=== PATIENT | male | born 1950 | race African-American/Black ===

== ENCOUNTER 2021-04-28 14:26 | Inpatient (IN) | payer MEDICARE, MEDICAID ==
[~2021-04-28] VITALS: Ht 172.7 cm; Wt 54.9 kg
[2021-04-28 16:43] LABS: CHLORIDE 101 mEq/L (98-107)
[2021-04-28 16:44] LABS: BASOPHILS % 0.5 % (0.0-2.0); EOSINOPHILS % 0.9 % (0.0-5.0); HEMATOCRIT. 40.7 % (42.0-52.0); HEMOGLOBIN. 13.8 g/dL (14.0-18.0); LYMPHOCYTES % 17.2 % (20.0-50.0); MEAN CORPUSCULAR HEMOGLOBIN 32.8 pg (28.0-32.0); MEAN CORPUSCULAR VOLUME 96.8 fL (80.0-94.0); MEAN PLATELET VOLUME 8.5 fl (7.4-10.4); MONOCYTES % 5.5 % (2.0-8.0); NEUTROPHILS % 75.9 % (40.0-76.0); PLATELET 303 x1000/uL (130-400); RED CELL DISTRIBUTION WIDTH 13.3 % (11.6-14.6)
[2021-04-28] MEDS ORDERED: ALBUTEROL (0.083%) 2.5MG/3ML NEB HHN STA (16:47)
[2021-04-28] MEDS ORDERED: IPRATROPIUM BROMIDE (0.02%) 0.5MG/2.5ML NEB HHN STA (16:47)
[2021-04-28] MEDS ORDERED: PREDNISONE 20MG TABLET PO STA (16:47)
[2021-04-28] MEDS ORDERED: FUROSEMIDE 40MG/4ML VIAL IVP NR (17:15)
[2021-04-28] MEDS ORDERED: ALBUTEROL (0.5%) 2.5MG/0.5ML NEB HHN ONE (17:16)
[2021-04-28] MEDS ORDERED: CEFTRIAXONE 1 G PREMIX 50 ML IV ONE (18:45)
[2021-04-28] MEDS ORDERED: AZITHROMYCIN 500 MG in DEXT 5% WATER 250 ML IV SCH (18:45)
[2021-04-28 20:35] LABS: CLARITY URINE CLEAR (CLEAR); COLOR URINE YELLOW (YELLOW); KETONES URINE NEGATIVE (NEGATIVE); LEUKOCYTE ESTERASE URINE NEGATIVE (NEGATIVE); NITRITE URINE NEGATIVE (NEGATIVE); OCCULT BLOOD URINE NEGATIVE (NEGATIVE); PH URINE 6.5 (4.5-8.0); PROTEIN URINE 1+ (NEGATIVE); SPECIFIC GRAVITY URINE 1.015 (1.005-1.030); UROBILINOGEN URINE 0.2 E.U./dL (0.2-1.0)
[2021-04-29 10:15] VITALS: BP 142/82
[2021-04-29] MEDS ORDERED: GLYB2.5T4 PO (11:02)
[2021-04-29] MEDS ORDERED: METF-873 PO (11:02)
[2021-04-29 11:16] VITALS: BP 143/83
[2021-04-29 12:00] VITALS: BP 146/101
[2021-04-29 12:02] VITALS: BP 143/83
[2021-04-29] MEDS ORDERED: CLONIDINE 0.1MG TABLET PO PRN (12:45)
[2021-04-29] MEDS ORDERED: MAGNESIUM/ALUMINUM HYDROXIDE/SIMETHICONE 30ML UDC PO PRN (12:45)
[2021-04-29] MEDS ORDERED: HYDROCODONE/ACETAMINOPHEN 5/325MG TABLET PO PRN (12:45)
[2021-04-29] MEDS ORDERED: DOCUSATE SODIUM 100MG CAPSULE PO PRN (12:45)
[2021-04-29] MEDS ORDERED: ACETAMINOPHEN 325MG TABLET PO PRN (12:45)
[2021-04-29] MEDS ORDERED: ONDANSETRON HCL 4MG/2ML INJ IV PRN (12:45)
[2021-04-29] MEDS ORDERED: DEXTROSE 50% WATER 50ML SYRINGE IV PRN ×2 (12:45)
[2021-04-29] MEDS ORDERED: IPRATROPIUM/ALBUTEROL 0.5-3(2.5)MG/3ML NEB HHN PRN (12:45)
[2021-04-29] MEDS: FUROSEMIDE 40MG/4ML VIAL IVP SCH ×2 (14:32→18:40)
[2021-04-29] MEDS: LOSARTAN POTASSIUM 25 MG TABLET PO SCH (14:32)
[2021-04-29] MEDS: ENOXAPARIN 40MG/0.4ML SYR SUBCUT SCH (14:33)
[2021-04-29] MEDS: INSULIN LISPRO 100 UNITS/ML SUBCUT SCH ×3 (14:35→21:00)
[2021-04-29] MEDS ORDERED: INSULIN LISPRO 100 UNITS/ML SUBCUT NR (14:45)
[2021-04-29 16:00] VITALS: BP 141/86
[2021-04-29] MEDS ORDERED: GLYBURIDE 2.5MG TABLET PO SCH (17:00)
[2021-04-29 17:10] LABS: HEPATITIS B SURFACE ANTIGEN NEGATIVE
[2021-04-29 17:54] LABS: CLARITY URINE CLEAR (CLEAR); COLOR URINE YELLOW (YELLOW); KETONES URINE NEGATIVE (NEGATIVE); LEUKOCYTE ESTERASE URINE NEGATIVE (NEGATIVE); NITRITE URINE NEGATIVE (NEGATIVE); OCCULT BLOOD URINE NEGATIVE (NEGATIVE); PH URINE 6.5 (4.5-8.0); PROTEIN URINE NEGATIVE (NEGATIVE); SPECIFIC GRAVITY URINE 1.021 (1.005-1.030); UROBILINOGEN URINE 0.2 E.U./dL (0.2-1.0)
[2021-04-29] MEDS ORDERED: NALOXONE HCL 0.4MG/ML VIAL IV PRN (18:00)
[2021-04-29] MEDS: BLOOD SUGAR DIAGNOSTIC STRIP TEST SCH ×2 (18:09→21:45)
[2021-04-29 18:31] LABS: *AMPHETAMINES SCREEN URINE NEGATIVE (NEGATIVE); *BARBITURATES SCREEN URINE NEGATIVE (NEGATIVE); *BENZODIAZEPINES SCREEN URINE NEGATIVE (NEGATIVE); *COCAINE SCREEN URINE NEGATIVE (NEGATIVE); METHADONE URINE SCREEN NEGATIVE (NEGATIVE); OPIATES URINE SCREEN NEGATIVE (NEGATIVE)
[2021-04-29 18:32] LABS: CANNABINOID URINE SCREEN NEGATIVE (NEGATIVE); PHENCYCLIDINE URINE SCREEN NEGATIVE (NEGATIVE)
[2021-04-29] MEDS: METFORMIN HCL 500MG TABLET PO SCH (18:40)
[2021-04-29] MEDS: GLIPIZIDE 5MG TABLET PO SCH (18:40)
[2021-04-29 20:00] VITALS: BP 129/93
[2021-04-29] MEDS: CARVEDILOL 3.125 MG TABLET PO SCH (21:45)
[2021-04-29] MEDS ORDERED: ZOLPIDEM TARTRATE 5MG TABLET PO PRN (22:45)
[2021-04-29] MEDS: ZOLPIDEM TARTRATE 5MG TABLET PO PRN (23:55)
[2021-04-30] VITALS (7 sets, daily range): BP systolic 127–148; BP diastolic 73–93
[2021-04-30] MEDS: FUROSEMIDE 40MG/4ML VIAL IVP SCH ×2 (06:34→18:51)
[2021-04-30 06:42] LABS: CHLORIDE 101 mEq/L (98-107)
[2021-04-30] MEDS: BLOOD SUGAR DIAGNOSTIC STRIP TEST SCH ×4 (06:42→21:08)
[2021-04-30 06:55] LABS: LDL CHOLESTEROL 114 mg/dL (5-100)
[2021-04-30 06:56] LABS: BASOPHILS % 0.7 % (0.0-2.0); EOSINOPHILS % 2.7 % (0.0-5.0); HDL CHOLESTEROL 61 mg/dL (40-59); HEMATOCRIT. 40.8 % (42.0-52.0); HEMOGLOBIN. 13.6 g/dL (14.0-18.0); LYMPHOCYTES % 21.4 % (20.0-50.0); MEAN CORPUSCULAR HEMOGLOBIN 32.3 pg (28.0-32.0); MEAN PLATELET VOLUME 8.5 fl (7.4-10.4); MONOCYTES % 6.9 % (2.0-8.0); NEUTROPHILS % 68.3 % (40.0-76.0); PLATELET 295 x1000/uL (130-400); RED BLOOD CELL COUNT 4.21 mill/uL (4.7-6.1); RED CELL DISTRIBUTION WIDTH 13.2 % (11.6-14.6)
[2021-04-30] MEDS: LOSARTAN POTASSIUM 25 MG TABLET PO SCH (09:52)
[2021-04-30] MEDS: GLIPIZIDE 5MG TABLET PO SCH ×2 (09:52→18:51)
[2021-04-30] MEDS: CARVEDILOL 3.125 MG TABLET PO SCH (09:53)
[2021-04-30] MEDS: METFORMIN HCL 500MG TABLET PO SCH ×2 (09:53→18:51)
[2021-04-30] MEDS: INSULIN LISPRO 100 UNITS/ML SUBCUT SCH ×4 (09:57→21:45)
[2021-04-30] MEDS: ENOXAPARIN 40MG/0.4ML SYR SUBCUT SCH (16:00)
[2021-04-30] MEDS: CARVEDILOL 12.5MG TABLET PO SCH (21:44)
[2021-05-01] VITALS: BP 125/77
[2021-05-01] MEDS ORDERED: MAGNESIUM 1 G PREMIX 100 ML IV NR
[2021-05-01 04:00] VITALS: BP 139/87
[2021-05-01] MEDS: FUROSEMIDE 40MG/4ML VIAL IVP SCH ×2 (06:18→16:19)
[2021-05-01] MEDS: BLOOD SUGAR DIAGNOSTIC STRIP TEST SCH ×4 (06:45→21:19)
[2021-05-01] MEDS: INSULIN LISPRO 100 UNITS/ML SUBCUT SCH ×4 (07:50→21:22)
[2021-05-01 08:10] VITALS: BP 128/68
[2021-05-01] MEDS: CARVEDILOL 12.5MG TABLET PO SCH ×2 (09:25→21:21)
[2021-05-01] MEDS: LOSARTAN POTASSIUM 25 MG TABLET PO SCH (09:25)
[2021-05-01] MEDS: GLIPIZIDE 5MG TABLET PO SCH ×2 (09:26→16:19)
[2021-05-01] MEDS: METFORMIN HCL 500MG TABLET PO SCH ×2 (09:26→17:10)
[2021-05-01 12:00] VITALS: BP 132/82
[2021-05-01] MEDS: SPIRONOLACTONE 25MG TABLET PO SCH (12:19)
[2021-05-01 13:03] LABS: BASOPHILS % 1.1 % (0.0-2.0); EOSINOPHILS % 2.7 % (0.0-5.0); HEMATOCRIT. 39.3 % (42.0-52.0); HEMOGLOBIN. 13.2 g/dL (14.0-18.0); LYMPHOCYTES % 26.6 % (20.0-50.0); MEAN CORPUSCULAR HEMOGLOBIN 32.5 pg (28.0-32.0); MEAN CORPUSCULAR VOLUME 96.7 fL (80.0-94.0); MEAN PLATELET VOLUME 8.2 fl (7.4-10.4); MONOCYTES % 7.9 % (2.0-8.0); NEUTROPHILS % 61.7 % (40.0-76.0); PLATELET 315 x1000/uL (130-400); RED BLOOD CELL COUNT 4.06 mill/uL (4.7-6.1); RED CELL DISTRIBUTION WIDTH 13.2 % (11.6-14.6)
[2021-05-01 13:37] LABS: CHLORIDE 99 mEq/L (98-107)
[2021-05-01 16:00] VITALS: BP 145/90
[2021-05-01] MEDS: ENOXAPARIN 40MG/0.4ML SYR SUBCUT SCH (16:19)
[2021-05-01 20:00] VITALS: BP 137/75
[2021-05-01] MEDS: ATORVASTATIN CALCIUM 20MG TABLET PO SCH (21:21)
[2021-05-02] VITALS: BP 138/78
[2021-05-02 04:00] VITALS: BP 124/73
[2021-05-02] MEDS: FUROSEMIDE 40MG/4ML VIAL IVP SCH ×2 (06:42→16:59)
[2021-05-02] MEDS: BLOOD SUGAR DIAGNOSTIC STRIP TEST SCH ×4 (06:47→21:46)
[2021-05-02 08:00] VITALS: BP 129/75
[2021-05-02] MEDS: METFORMIN HCL 500MG TABLET PO SCH ×2 (08:37→17:29)
[2021-05-02] MEDS: GLIPIZIDE 5MG TABLET PO SCH ×2 (08:37→17:29)
[2021-05-02] MEDS: LOSARTAN POTASSIUM 25 MG TABLET PO SCH (08:37)
[2021-05-02] MEDS: CARVEDILOL 12.5MG TABLET PO SCH ×2 (08:38→21:00)
[2021-05-02] MEDS: SPIRONOLACTONE 25MG TABLET PO SCH (08:38)
[2021-05-02] MEDS: INSULIN LISPRO 100 UNITS/ML SUBCUT SCH ×4 (08:42→21:00)
[2021-05-02 12:00] VITALS: BP 125/81
[2021-05-02 16:00] VITALS: BP 119/79
[2021-05-02 20:00] VITALS: BP 131/63
[2021-05-02] MEDS: ATORVASTATIN CALCIUM 20MG TABLET PO SCH (21:00)
[2021-05-03] VITALS: BP 150/82
[2021-05-03 04:00] VITALS: BP 128/75
[2021-05-03] MEDS: FUROSEMIDE 40MG/4ML VIAL IVP SCH ×2 (06:27→19:06)
[2021-05-03] MEDS: BLOOD SUGAR DIAGNOSTIC STRIP TEST SCH ×4 (06:27→21:47)
[2021-05-03] MEDS: INSULIN LISPRO 100 UNITS/ML SUBCUT SCH ×4 (06:39→21:45)
[2021-05-03 09:00] VITALS: BP 102/63
[2021-05-03] MEDS: CARVEDILOL 12.5MG TABLET PO SCH ×3 (09:00→21:36)
[2021-05-03] MEDS: LOSARTAN POTASSIUM 25 MG TABLET PO SCH ×2 (09:00→09:05)
[2021-05-03] MEDS: METFORMIN HCL 500MG TABLET PO SCH ×2 (09:04→18:29)
[2021-05-03] MEDS: GLIPIZIDE 5MG TABLET PO SCH ×2 (09:04→18:28)
[2021-05-03] MEDS: SPIRONOLACTONE 25MG TABLET PO SCH (09:04)
[2021-05-03 12:00] VITALS: BP 154/85
[2021-05-03 12:30] LABS: PROTHROMBIN TIME 11.2 sec (9.6-11.0)
[2021-05-03 16:00] VITALS: BP 120/69
[2021-05-03 20:00] VITALS: BP 128/79
[2021-05-03] MEDS: ZOLPIDEM TARTRATE 5MG TABLET PO PRN (21:34)
[2021-05-03] MEDS: ATORVASTATIN CALCIUM 20MG TABLET PO SCH (21:36)
[2021-05-04] VITALS: BP 120/71
[2021-05-04 04:00] VITALS: BP 140/75
[2021-05-04] MEDS: FUROSEMIDE 40MG/4ML VIAL IVP SCH ×2 (07:05→17:39)
[2021-05-04] MEDS: INSULIN LISPRO 100 UNITS/ML SUBCUT SCH ×4 (07:07→20:36)
[2021-05-04] MEDS: BLOOD SUGAR DIAGNOSTIC STRIP TEST SCH ×4 (07:10→20:36)
[2021-05-04 08:00] VITALS: BP 127/95
[2021-05-04] MEDS: METFORMIN HCL 500MG TABLET PO SCH ×2 (08:40→17:47)
[2021-05-04] MEDS: LOSARTAN POTASSIUM 25 MG TABLET PO SCH (08:40)
[2021-05-04] MEDS: CARVEDILOL 12.5MG TABLET PO SCH ×2 (08:40→20:37)
[2021-05-04] MEDS: SPIRONOLACTONE 25MG TABLET PO SCH (08:40)
[2021-05-04] MEDS: GLIPIZIDE 5MG TABLET PO SCH ×2 (08:40→17:47)
[2021-05-04] MEDS ORDERED: SODIUM BICARBONATE 4% (2.4MEQ) 5ML VIAL IV ONE (09:35)
[2021-05-04] MEDS ORDERED: COR12 PO (12:30)
[2021-05-04] MEDS ORDERED: SPIR25TA PO (12:30)
[2021-05-04] MEDS ORDERED: FURO40TA5 MT (12:30)
[2021-05-04] MEDS ORDERED: LOSA25TA3 PO (12:30)
[2021-05-04] MEDS ORDERED: GLIP5TAB12 PO (12:30)
[2021-05-04] MEDS ORDERED: ATOR20TA PO (12:30)
[2021-05-04 16:00] VITALS: BP 141/84
[2021-05-04 20:00] VITALS: BP 114/63
[2021-05-04] MEDS: ATORVASTATIN CALCIUM 20MG TABLET PO SCH (20:37)
[2021-05-05] VITALS: BP 127/68
[2021-05-05 04:00] VITALS: BP 135/83
[2021-05-05] MEDS: FUROSEMIDE 40MG/4ML VIAL IVP SCH (06:42)
[2021-05-05] MEDS: BLOOD SUGAR DIAGNOSTIC STRIP TEST SCH ×2 (06:42→12:20)
[2021-05-05 07:40] VITALS: BP 109/73
[2021-05-05] MEDS: CARVEDILOL 12.5MG TABLET PO SCH (08:33)
[2021-05-05] MEDS: LOSARTAN POTASSIUM 25 MG TABLET PO SCH (08:33)
[2021-05-05] MEDS: SPIRONOLACTONE 25MG TABLET PO SCH (08:40)
[2021-05-05] MEDS: GLIPIZIDE 5MG TABLET PO SCH (08:40)
[2021-05-05] MEDS: METFORMIN HCL 500MG TABLET PO SCH (08:40)
[2021-05-05] MEDS: INSULIN LISPRO 100 UNITS/ML SUBCUT SCH (08:42)
[2021-05-05 10:47] LABS: BG BASE EXCESS 6.3 mmol/L (-2.0-2.0); BG CARBOXYHEMOGLOBIN 0.2 % (0.5-1.5); BG DEOXYHEMOGLOBIN 3.8 % (0.0-5.0); BG FRACTION INSPIRED OXYGEN 21; BG HCO3 ACT 30.9 mmol/L (22.0-26.0); BG METHEMOGLOBIN 0.2 % (0.0-1.5); BG OXYGEN SATURATION 96.2 % (92.0-98.5); BG OXYHEMOGLOBIN 95.8 % (94.0-97.0); BG PCO2 44.2 mmHg (35.0-45.0); BG PH 7.462 (7.350-7.450); BG PO2 84.3 mmHg (75.0-100.0); BG SAMPLE SITE LEFT RADIAL; BG TOTAL HEMOGLOBIN 13.8 g/dL (12.0-18.0); BG VENT MODE ROOM AIR
[2021-05-05 12:40] VITALS: BP 109/73
== END 2021-05-05 13:50 | disposition home health service (06) | DRG 133 ==
LOC: ER 14:39 → MICUSO 18:34 → 6WST 04-29 08:54
PROVIDERS: ADMIT Internal Medicine; ATTEND Internal Medicine
PROC: 0W993ZZ Drainage of Right Pleural Cavity, Percutaneous Approach (ICD-10-PCS; principal; 2021-05-04)
DX: J96.00 Acute respiratory failure, unspecified whether with hypoxia or hypercapnia (principal); I50.23 Acute on chronic systolic (congestive) heart failure; E11.649 Type 2 diabetes mellitus with hypoglycemia without coma; I27.29 Other secondary pulmonary hypertension; J91.8 Pleural effusion in other conditions classified elsewhere; I11.0 Hypertensive heart disease with heart failure; I42.9 Cardiomyopathy, unspecified; I25.10 Atherosclerotic heart disease of native coronary artery without angina pectoris; J44.9 Chronic obstructive pulmonary disease, unspecified; Z20.822 Contact with and (suspected) exposure to COVID-19; Z60.2 Problems related to living alone; I08.1 Rheumatic disorders of both mitral and tricuspid valves; Z87.891 Personal history of nicotine dependence; I25.2 Old myocardial infarction; Z87.01 Personal history of pneumonia (recurrent); Z91.19 Patient's noncompliance with other medical treatment and regimen; Z83.3 Family history of diabetes mellitus; Z95.5 Presence of coronary angioplasty implant and graft; Z79.84 Long term (current) use of oral hypoglycemic drugs; Z79.899 Other long term (current) drug therapy
CPT/HCPCS: 32555; 36415; 36600; 71045; 76604; 76700; 80048; 80053; 80061; 80076; 80305; 81003; 82375; 82805; 82962; 83036; 83615; 83735; 83880; 84100; 84439; 84443; 84484; 85025; 86705; 86709; 86803; 87340; 87426; 88108; 88312; 93005; 93306; 93970; 94640; 97162; 97166; 99285; C1893; J0456; J0696; J1650; J1815; J1940; J3475; J3490; J7060; J7512

== ENCOUNTER 2021-07-22 07:40 | Emergency (ER) | payer MEDICARE, MEDICAID ==
[~2021-07-22] VITALS: Ht 172.7 cm; Wt 66.0 kg
[~2021-07-22 07:40] MED LIST: ATOR20TA PO; COR12 PO; FURO40TA5 MT; GLIP5TAB12 PO; LOSA25TA3 PO; METF-873 PO; SPIR25TA PO
[2021-07-22] MEDS ORDERED: IPRATROPIUM BROMIDE (0.02%) 0.5MG/2.5ML NEB HHN STA (08:59)
[2021-07-22] MEDS ORDERED: ALBUTEROL (0.083%) 2.5MG/3ML NEB HHN STA (08:59)
[2021-07-22] MEDS ORDERED: PREDNISONE 20MG TABLET PO ONE (09:00)
[2021-07-22 09:26] LABS: EOSINOPHILS % 1.4 % (0.0-5.0); HEMOGLOBIN. 13.7 g/dL (14.0-18.0); LYMPHOCYTES % 25.7 % (20.0-50.0); MEAN CORPUSCULAR HEMOGLOBIN 31.8 pg (28.0-32.0); MEAN CORPUSCULAR VOLUME 97.3 fL (80.0-94.0); MEAN PLATELET VOLUME 8.1 fl (7.4-10.4); MONOCYTES % 7.6 % (2.0-8.0); NEUTROPHILS % 64.3 % (40.0-76.0); PLATELET 260 x1000/uL (130-400); RED BLOOD CELL COUNT 4.32 mill/uL (4.7-6.1); RED CELL DISTRIBUTION WIDTH 15.4 % (11.6-14.6)
[2021-07-22 09:33] LABS: CHLORIDE 109 mEq/L (98-107)
[2021-07-22] MEDS ORDERED: CLONIDINE 0.1MG TABLET PO PRN (10:15)
[2021-07-22] MEDS ORDERED: NA PHOS,M-B/NA PHOS,DI-BA ENEMA 118ML PR PRN (10:15)
[2021-07-22] MEDS ORDERED: LORAZEPAM 2MG/ML CPJ IV PRN (10:15)
[2021-07-22] MEDS ORDERED: ONDANSETRON HCL 4MG/2ML INJ IV PRN (10:15)
[2021-07-22] MEDS ORDERED: MAGNESIUM/ALUMINUM HYDROXIDE/SIMETHICONE 30ML UDC PO PRN (10:15)
[2021-07-22] MEDS ORDERED: GUAIFENESIN 200MG/10ML SUGAR FREE UDC PO PRN (10:15)
[2021-07-22] MEDS ORDERED: DIPHENHYDRAMINE 50MG/ML VIAL IV PRN (10:15)
[2021-07-22] MEDS ORDERED: ENALAPRIL 2.5MG/2ML VIAL 2ML IV ONE (10:15)
[2021-07-22] MEDS ORDERED: ACETAMINOPHEN 325MG TABLET PO PRN (10:15)
[2021-07-22] MEDS ORDERED: DOCUSATE SODIUM 100MG CAPSULE PO PRN (10:15)
[2021-07-22] MEDS ORDERED: MORPHINE SULFATE 2 MG/ML CPJ (NOT FOR IM USE) IV PRN (10:15)
[2021-07-22] MEDS ORDERED: IPRATROPIUM/ALBUTEROL 0.5-3(2.5)MG/3ML NEB NEB PRN (10:15)
[2021-07-22] MEDS ORDERED: FUROSEMIDE 40MG/4ML VIAL IVP ONE (10:15)
[2021-07-22] MEDS ORDERED: HYDROCODONE/ACETAMINOPHEN 5/325MG TABLET PO PRN (10:15)
[2021-07-22] MEDS ORDERED: ENALAPRIL 1.25MG/ML VIAL 1ML IV NR (10:30)
[2021-07-22] MEDS ORDERED: METHYLPREDNISOLONE SOD SUCC 125 MG/2 ML VIAL IV SCH (11:00)
[2021-07-22] MEDS ORDERED: ASPIRIN 81MG EC TABLET PO SCH (11:00)
[2021-07-22] MEDS ORDERED: ENOXAPARIN 40MG/0.4ML SYR SUBCUT SCH (12:00)
[2021-07-22] MEDS ORDERED: AZITHROMYCIN 500 MG in DEXT 5% WATER 250 ML IV SCH (12:00)
[2021-07-22 13:18] VITALS: BP 131/81
== END 2021-07-22 13:00 | disposition left against medical advice (07) ==
LOC: ER 07:44 → EDBEDREQTM 10:11 → EDBEDREQ 10:11 → ER 13:00 → CANBEDREQ 16:10
DX: J96.00 Acute respiratory failure, unspecified whether with hypoxia or hypercapnia (principal); I11.0 Hypertensive heart disease with heart failure; I50.9 Heart failure, unspecified; J44.9 Chronic obstructive pulmonary disease, unspecified; J45.909 Unspecified asthma, uncomplicated; E11.65 Type 2 diabetes mellitus with hyperglycemia; I25.10 Atherosclerotic heart disease of native coronary artery without angina pectoris; R00.0 Tachycardia, unspecified; I25.2 Old myocardial infarction; E46 Unspecified protein-calorie malnutrition; Z68.22 Body mass index [BMI] 22.0-22.9, adult; Z79.899 Other long term (current) drug therapy; Z79.84 Long term (current) use of oral hypoglycemic drugs
CPT/HCPCS: 36415; 71045; 80053; 83880; 84484; 85025; 93005; 94644; 99285; J7512; Z7610; J0456; J3490; J7060

== ENCOUNTER 2021-08-24 22:19 | Inpatient (IN) | payer MEDICARE, MEDICAID ==
[~2021-08-24] VITALS: Ht 170.2 cm; Wt 72.6 kg
[2021-08-24] MEDS ORDERED: IPRATROPIUM BROMIDE (0.02%) 0.5MG/2.5ML NEB HHN STA (22:47)
[2021-08-24] MEDS ORDERED: METHYLPREDNISOLONE SOD SUCC 125 MG/2 ML VIAL IV STA (22:47)
[2021-08-24] MEDS ORDERED: ALBUTEROL (0.083%) 2.5MG/3ML NEB HHN STA (22:47)
[2021-08-24] MEDS ORDERED: MAGNESIUM 2 G PREMIX 50 ML IV STA (22:47)
[2021-08-25] MEDS ORDERED: ACETAMINOPHEN 325MG TABLET PO PRN (01:15)
[2021-08-25] MEDS: METHYLPREDNISOLONE SOD SUCC 125 MG/2 ML VIAL IV SCH ×3 (01:15→12:48)
[2021-08-25] MEDS ORDERED: ONDANSETRON HCL 4MG/2ML INJ IV PRN (01:15)
[2021-08-25 01:44] LABS: HEMATOCRIT 39.9 % (42.0-52.0); HEMOGLOBIN 13.7 g/dL (14.0-18.0); MEAN CORPUSCULAR HEMOGLOBIN 33.3 pg (28.0-32.0); PLATELET 260 x1000/uL (130-400); RED BLOOD CELL COUNT 4.11 mill/uL (4.7-6.1)
[2021-08-25 01:52] LABS: CHLORIDE 107 mEq/L (98-107)
[2021-08-25 06:29] LABS: CLARITY URINE CLEAR (CLEAR); COLOR URINE YELLOW (YELLOW); KETONES URINE TRACE (NEGATIVE); LEUKOCYTE ESTERASE URINE NEGATIVE (NEGATIVE); NITRITE URINE NEGATIVE (NEGATIVE); OCCULT BLOOD URINE NEGATIVE (NEGATIVE); PH URINE 5.5 (4.5-8.0); PROTEIN URINE 2+ (NEGATIVE); SPECIFIC GRAVITY URINE 1.035 (1.005-1.030)
[2021-08-25 07:50] LABS: *AMPHETAMINES SCREEN URINE NEGATIVE (NEGATIVE); *BARBITURATES SCREEN URINE NEGATIVE (NEGATIVE); *BENZODIAZEPINES SCREEN URINE NEGATIVE (NEGATIVE); *COCAINE SCREEN URINE NEGATIVE (NEGATIVE); METHADONE URINE SCREEN NEGATIVE (NEGATIVE); OPIATES URINE SCREEN PRESUMTIVE POSITIVE (NEGATIVE)
[2021-08-25 07:51] LABS: CANNABINOID URINE SCREEN NEGATIVE (NEGATIVE); PHENCYCLIDINE URINE SCREEN NEGATIVE (NEGATIVE)
[2021-08-25 08:45] LABS: CREATINE KINASE 145 IU/L (39-308)
[2021-08-25 08:46] LABS: CREATINE KINASE MB FRACTION 3.9 ng/mL (0.5-3.6)
[2021-08-25] MEDS: ENOXAPARIN 40MG/0.4ML SYR SUBCUT SCH (09:00)
[2021-08-25] MEDS: AMLODIPINE 10MG TABLET PO SCH (09:21)
[2021-08-25 10:00] VITALS: BP 178/109
[2021-08-25] MEDS ORDERED: CLONIDINE 0.1MG TABLET PO PRN (10:30)
[2021-08-25 11:00] VITALS: BP 178/109
[2021-08-25 12:00] VITALS: BP 131/71
[2021-08-25] MEDS: IPRATROPIUM/ALBUTEROL 0.5-3(2.5)MG/3ML NEB HHN SCH ×2 (14:00→20:52)
[2021-08-25] MEDS ORDERED: DEXTROSE 50% WATER 50ML SYRINGE IV PRN (14:45)
[2021-08-25] MEDS: BENAZEPRIL 5MG TABLET PO SCH (15:05)
[2021-08-25] MEDS: CARVEDILOL 6.25 MG TABLET PO SCH ×2 (15:05→20:30)
[2021-08-25 16:00] VITALS: BP 130/80
[2021-08-25] MEDS ORDERED: INSULIN GLARGINE UD 100 UNITS/ML SYR SUBCUT NR (17:00)
[2021-08-25] MEDS: BLOOD SUGAR DIAGNOSTIC STRIP TEST SCH ×2 (17:04→20:12)
[2021-08-25] MEDS ORDERED: INSULIN LISPRO 100 UNITS/ML SUBCUT SCH (17:40)
[2021-08-25] MEDS: METHYLPREDNISOLONE SOD SUCC 40 MG/ML VIAL IV SCH (17:47)
[2021-08-25] MEDS: INSULIN LISPRO 100 UNITS/ML SUBCUT SCH ×2 (17:51→20:31)
[2021-08-25 20:00] VITALS: BP_SYST 129; BP_SYST 133; BP_DIAS 68; BP_DIAS 84
[2021-08-26] MEDS: IPRATROPIUM/ALBUTEROL 0.5-3(2.5)MG/3ML NEB HHN SCH ×4 (02:23→20:26)
[2021-08-26 04:00] VITALS: BP 115/77
[2021-08-26] MEDS: BLOOD SUGAR DIAGNOSTIC STRIP TEST SCH ×4 (05:29→20:18)
[2021-08-26] MEDS: INSULIN LISPRO 100 UNITS/ML SUBCUT SCH ×4 (05:31→20:24)
[2021-08-26 07:26] LABS: BASOPHILS % 0.2 % (0.0-2.0); EOSINOPHILS % 0.1 % (0.0-5.0); HEMATOCRIT. 41.5 % (42.0-52.0); HEMOGLOBIN. 13.7 g/dL (14.0-18.0); MEAN CORPUSCULAR HEMOGLOBIN 32.2 pg (28.0-32.0); MEAN CORPUSCULAR VOLUME 97.4 fL (80.0-94.0); MEAN PLATELET VOLUME 8.4 fl (7.4-10.4); MONOCYTES % 4.8 % (2.0-8.0); NEUTROPHILS % 83.9 % (40.0-76.0); PLATELET 254 x1000/uL (130-400); RED BLOOD CELL COUNT 4.26 mill/uL (4.7-6.1); RED CELL DISTRIBUTION WIDTH 13.6 % (11.6-14.6)
[2021-08-26 07:41] LABS: CHLORIDE 102 mEq/L (98-107)
[2021-08-26 07:52] LABS: LDL CHOLESTEROL 112 mg/dL (5-100)
[2021-08-26 07:53] LABS: CREATINE KINASE 152 IU/L (39-308); HDL CHOLESTEROL 73 mg/dL (40-59)
[2021-08-26 07:56] LABS: CREATINE KINASE MB FRACTION 5.1 ng/mL (0.5-3.6)
[2021-08-26] MEDS: CARVEDILOL 6.25 MG TABLET PO SCH ×2 (08:59→20:18)
[2021-08-26] MEDS: BENAZEPRIL 5MG TABLET PO SCH (08:59)
[2021-08-26] MEDS: METHYLPREDNISOLONE SOD SUCC 40 MG/ML VIAL IV SCH ×2 (08:59→17:00)
[2021-08-26] MEDS: AMLODIPINE 10MG TABLET PO SCH (09:00)
[2021-08-26] MEDS: ENOXAPARIN 40MG/0.4ML SYR SUBCUT SCH (09:00)
[2021-08-26] MEDS ORDERED: INSULIN GLARGINE UD 100 UNITS/ML SYR SUBCUT SCH (10:00)
[2021-08-26 11:58] LABS: INR 1.1; PROTHROMBIN TIME 11.4 sec (9.6-11.0)
[2021-08-26 12:00] VITALS: BP 128/86
[2021-08-26] MEDS ORDERED: P50 MT (16:12)
[2021-08-26] MEDS ORDERED: ALBU6.7H9 INH (16:12)
[2021-08-26 20:00] VITALS: BP 119/84
[2021-08-27] MEDS: IPRATROPIUM/ALBUTEROL 0.5-3(2.5)MG/3ML NEB HHN SCH ×3 (01:56→14:00)
[2021-08-27 04:00] VITALS: BP 137/98
[2021-08-27] MEDS: BLOOD SUGAR DIAGNOSTIC STRIP TEST SCH (06:49)
[2021-08-27] MEDS: INSULIN LISPRO 100 UNITS/ML SUBCUT SCH (06:49)
[2021-08-27] MEDS: ENOXAPARIN 40MG/0.4ML SYR SUBCUT SCH (09:00)
[2021-08-27] MEDS: METHYLPREDNISOLONE SOD SUCC 40 MG/ML VIAL IV SCH (09:00)
[2021-08-27] MEDS: CARVEDILOL 6.25 MG TABLET PO SCH (09:00)
[2021-08-27] MEDS: AMLODIPINE 10MG TABLET PO SCH (09:00)
[2021-08-27] MEDS: BENAZEPRIL 5MG TABLET PO SCH (09:00)
[2021-08-27 14:19] LABS: BASOPHILS % 0.7 % (0.0-2.0); HEMOGLOBIN. 13.7 g/dL (14.0-18.0); LYMPHOCYTES % 18.1 % (20.0-50.0); MEAN CORPUSCULAR HEMOGLOBIN 33.7 pg (28.0-32.0); MEAN CORPUSCULAR VOLUME 96.2 fL (80.0-94.0); MEAN PLATELET VOLUME 8.5 fl (7.4-10.4); MONOCYTES % 5.9 % (2.0-8.0); NEUTROPHILS % 74.3 % (40.0-76.0); PLATELET 251 x1000/uL (130-400); RED BLOOD CELL COUNT 4.06 mill/uL (4.7-6.1); RED CELL DISTRIBUTION WIDTH 13.6 % (11.6-14.6)
[2021-08-27 14:38] LABS: CHLORIDE 102 mEq/L (98-107)
[2021-08-27] MEDS ORDERED: METFORMIN HCL 500 MG PO SCH (15:15)
[2021-08-27] MEDS ORDERED: METFORMIN HCL 500MG TABLET PO SCH (17:40)
[2021-08-29 21:30] LABS: HEPATITIS B SURFACE ANTIGEN NEGATIVE
== END 2021-08-27 18:15 | disposition home or self-care (01) | DRG 142 ==
LOC: ER 22:19 → MICUSO 08-25 01:06 → 8WST 08-25 09:38
PROVIDERS: ADMIT Family Medicine; ATTEND Family Medicine
DX: J84.9 Interstitial pulmonary disease, unspecified (principal); J96.00 Acute respiratory failure, unspecified whether with hypoxia or hypercapnia; I50.23 Acute on chronic systolic (congestive) heart failure; J44.1 Chronic obstructive pulmonary disease with (acute) exacerbation; I27.29 Other secondary pulmonary hypertension; I42.9 Cardiomyopathy, unspecified; E11.9 Type 2 diabetes mellitus without complications; E78.5 Hyperlipidemia, unspecified; F17.210 Nicotine dependence, cigarettes, uncomplicated; I08.1 Rheumatic disorders of both mitral and tricuspid valves; I11.0 Hypertensive heart disease with heart failure; Z20.822 Contact with and (suspected) exposure to COVID-19; I70.0 Atherosclerosis of aorta; I25.2 Old myocardial infarction
CPT/HCPCS: 36415; 71045; 76700; 80053; 80061; 80076; 80305; 81003; 82140; 82550; 82553; 82962; 83036; 83880; 84443; 84484; 85025; 85027; 86705; 86709; 86803; 87340; 87426; 93005; 93306; 94640; 99291; C1893; J1650; J1815; J2920; J2930; J3475

== ENCOUNTER 2021-09-19 01:30 | Emergency (ER) | payer MEDICARE, MEDICAID ==
[~2021-09-19] VITALS: Ht 177.8 cm; Wt 59.0 kg
[~2021-09-19 01:30] MED LIST changes: +ALBU6.7H9 INH; -ATOR20TA PO; -FURO40TA5 MT; +FURO40TA5 PO; -GLIP5TAB12 PO; +INSU100I28 SQ; +POTA-9 MT; -SPIR25TA PO
[2021-09-19 09:40] VITALS: BP 139/75
== END 2021-09-19 09:41 | disposition home or self-care (01) ==
LOC: ER 01:45
DX: Z48.00 Encounter for change or removal of nonsurgical wound dressing (principal)
CPT/HCPCS: 99283

== ENCOUNTER 2022-02-06 21:17 | Inpatient (IN) | payer MEDICARE, MEDICAID ==
[~2022-02-06] VITALS: Ht 170.2 cm; Wt 56.0 kg
[~2022-02-06 21:17] MED LIST changes: +POTA-202 MT; -POTA-9 MT
[2022-02-06 23:42] LABS: HEMATOCRIT. 29.6 % (42.0-52.0); HEMOGLOBIN. 9.6 g/dL (14.0-18.0); MEAN CORPUSCULAR HEMOGLOBIN 29.3 pg (28.0-32.0); MEAN CORPUSCULAR VOLUME 90.8 fL (80.0-94.0); MEAN PLATELET VOLUME 7.6 fl (7.4-10.4); PLATELET 541 x1000/uL (130-400); RED BLOOD CELL COUNT 3.26 mill/uL (4.7-6.1); RED CELL DISTRIBUTION WIDTH 16.5 % (11.6-14.6)
[2022-02-06 23:50] LABS: CHLORIDE 90 mEq/L (98-107)
[2022-02-07 00:11] LABS: BETA HYDROXYBUTYRATE 2.7 mMol/L (0.0-0.3); ETHANOL BLOOD < 10 mg/dL
[2022-02-07] MEDS ORDERED: SODIUM CHLORIDE 0.9% 1000ML BAG (SEPSIS BOLUS) IV NR (00:45)
[2022-02-07] MEDS ORDERED: PIPERACILLIN/TAZOBACTAM 3.375GM/50ML PREMIX IV ONE (00:45)
[2022-02-07] MEDS ORDERED: INSULIN LISPRO 100 UNITS/ML SUBCUT NR (00:45)
[2022-02-07] MEDS ORDERED: VANCOMYCIN 1G PREMIX 200 ML IV NR (00:45)
[2022-02-07] MEDS ORDERED: PIPERACILLIN/TAZ 3.375G PREMIX 50 ML IV NR (01:00)
[2022-02-07] MEDS ORDERED: MIDAZOLAM HCL 2 MG/2 ML VIAL IM NR (02:00)
[2022-02-07 02:54] LABS: ATYPICAL LYMPHOCYTES 1; PLATELET ESTIMATE INCREASED
[2022-02-07] MEDS ORDERED: TRAMADOL 50MG TABLET PO PRN (06:45)
[2022-02-07] MEDS ORDERED: VANCOMYCIN 1G PREMIX 200 ML IV SCH (06:45)
[2022-02-07] MEDS ORDERED: GUAIFENESIN 200MG/10ML SUGAR FREE UDC PO PRN (06:45)
[2022-02-07] MEDS ORDERED: DOCUSATE SODIUM 100MG CAPSULE PO PRN (06:45)
[2022-02-07] MEDS ORDERED: ONDANSETRON HCL 4MG/2ML INJ IV PRN (06:45)
[2022-02-07] MEDS ORDERED: HYDROCODONE/ACETAMINOPHEN 5/325MG TABLET PO PRN (06:45)
[2022-02-07] MEDS ORDERED: MAGNESIUM/ALUMINUM HYDROXIDE/SIMETHICONE 30ML UDC PO PRN (06:45)
[2022-02-07] MEDS ORDERED: PIPERACILLIN/TAZOBACTAM 3.375 G in DEXTROSE 5% WATER 50 ML IV SCH (08:00)
[2022-02-07] MEDS: ENOXAPARIN 40MG/0.4ML SYR SUBCUT SCH (10:52)
[2022-02-07] MEDS: AMLODIPINE 10MG TABLET PO SCH (10:52)
[2022-02-07] MEDS ORDERED: VANCOMYCIN 1GM PMX (XELLIA) 200 ML IV SCH (11:00)
[2022-02-07 12:00] VITALS: BP 132/81
[2022-02-07] MEDS: INSULIN GLARGINE 100 UNITS/ML SUBCUT SCH (12:13)
[2022-02-07 12:30] LABS: HEMATOCRIT. 31.8 % (42.0-52.0); HEMOGLOBIN. 10.2 g/dL (14.0-18.0); MEAN CORPUSCULAR VOLUME 90.5 fL (80.0-94.0); MEAN PLATELET VOLUME 7.8 fl (7.4-10.4); PLATELET 531 x1000/uL (130-400); RED BLOOD CELL COUNT 3.52 mill/uL (4.7-6.1); RED CELL DISTRIBUTION WIDTH 16.4 % (11.6-14.6)
[2022-02-07] MEDS ORDERED: NALOXONE HCL 0.4MG/ML VIAL IV PRN (12:30)
[2022-02-07] MEDS: INSULIN LISPRO 100 UNITS/ML SUBCUT SCH ×2 (13:11→17:51)
[2022-02-07 13:23] LABS: CHLORIDE 94 mEq/L (98-107)
[2022-02-07] MEDS: VANCOMYCIN 1GM PMX (XELLIA) 200 ML IV SCH (15:08)
[2022-02-07 16:00] VITALS: BP 128/74
[2022-02-07] MEDS: PIPERACILLIN/TAZOBACTAM 3.375 G in DEXTROSE 5% WATER 50 ML IV SCH ×2 (17:50→22:20)
[2022-02-07 20:00] VITALS: BP 154/89
[2022-02-07] MEDS: SODIUM CHLORIDE 0.45% 1,000 ML IV SCH (21:46)
[2022-02-07] MEDS: ACETAMINOPHEN 325MG TABLET PO PRN (21:47)
[2022-02-08] VITALS: BP 146/77
[2022-02-08] MEDS: VANCOMYCIN 1GM PMX (XELLIA) 200 ML IV SCH ×2 (03:03→19:03)
[2022-02-08 04:00] VITALS: BP 147/91
[2022-02-08 05:25] LABS: PLATELET ESTIMATE INCREASED
[2022-02-08] MEDS: PIPERACILLIN/TAZOBACTAM 3.375 G in DEXTROSE 5% WATER 50 ML IV SCH ×3 (06:02→21:49)
[2022-02-08] MEDS: INSULIN LISPRO 100 UNITS/ML SUBCUT SCH ×3 (06:40→16:40)
[2022-02-08 08:00] VITALS: BP 117/64
[2022-02-08 09:05] LABS: CHLORIDE 97 mEq/L (98-107)
[2022-02-08 09:09] LABS: HEMATOCRIT. 27.3 % (42.0-52.0); HEMOGLOBIN. 9.1 g/dL (14.0-18.0); MEAN CORPUSCULAR HEMOGLOBIN 29.1 pg (28.0-32.0); MEAN CORPUSCULAR VOLUME 87.2 fL (80.0-94.0); MEAN PLATELET VOLUME 7.7 fl (7.4-10.4); PLATELET 498 x1000/uL (130-400); RED BLOOD CELL COUNT 3.12 mill/uL (4.7-6.1); RED CELL DISTRIBUTION WIDTH 16.3 % (11.6-14.6)
[2022-02-08] MEDS: ENOXAPARIN 40MG/0.4ML SYR SUBCUT SCH (09:11)
[2022-02-08] MEDS: AMLODIPINE 10MG TABLET PO SCH (09:12)
[2022-02-08 09:13] LABS: HDL CHOLESTEROL 14 mg/dL (40-59); LDL CHOLESTEROL 47 mg/dL (5-100)
[2022-02-08] MEDS: SODIUM CHLORIDE 0.45% 1,000 ML IV SCH ×2 (09:13→21:49)
[2022-02-08] MEDS: INSULIN GLARGINE 100 UNITS/ML SUBCUT SCH (09:14)
[2022-02-08] MEDS: POTASSIUM CHLORIDE 20MEQ TABLET SR PO SCH (09:45)
[2022-02-08 12:00] VITALS: BP 113/65
[2022-02-08 16:00] VITALS: BP 126/60
[2022-02-08 20:00] VITALS: BP 133/74
[2022-02-08 22:45] LABS: PLATELET ESTIMATE INCREASED
[2022-02-09] VITALS: BP 126/76
[2022-02-09] MEDS: VANCOMYCIN 1GM PMX (XELLIA) 200 ML IV SCH ×2 (03:00→15:00)
[2022-02-09 04:00] VITALS: BP 127/66
[2022-02-09] MEDS: PIPERACILLIN/TAZOBACTAM 3.375 G in DEXTROSE 5% WATER 50 ML IV SCH ×3 (05:34→21:21)
[2022-02-09] MEDS: INSULIN LISPRO 100 UNITS/ML SUBCUT SCH ×4 (05:35→20:33)
[2022-02-09 07:28] LABS: HEMATOCRIT. 25.5 % (42.0-52.0); HEMOGLOBIN. 8.5 g/dL (14.0-18.0); MEAN CORPUSCULAR HEMOGLOBIN 28.8 pg (28.0-32.0); MEAN CORPUSCULAR VOLUME 86.6 fL (80.0-94.0); MEAN PLATELET VOLUME 7.4 fl (7.4-10.4); PLATELET 432 x1000/uL (130-400); RED BLOOD CELL COUNT 2.94 mill/uL (4.7-6.1); RED CELL DISTRIBUTION WIDTH 16.2 % (11.6-14.6)
[2022-02-09 07:44] LABS: CHLORIDE 101 mEq/L (98-107)
[2022-02-09 08:00] VITALS: BP 158/77
[2022-02-09] MEDS: POTASSIUM CHLORIDE 20MEQ TABLET SR PO SCH (09:34)
[2022-02-09] MEDS: ENOXAPARIN 40MG/0.4ML SYR SUBCUT SCH (09:34)
[2022-02-09] MEDS: AMLODIPINE 10MG TABLET PO SCH (09:34)
[2022-02-09] MEDS: INSULIN GLARGINE 100 UNITS/ML SUBCUT SCH (10:00)
[2022-02-09] MEDS ORDERED: KCL 20MEQ/100ML PREMIX 100 ML IV NR (10:30)
[2022-02-09 11:01] LABS: PLATELET ESTIMATE INCREASED
[2022-02-09 12:00] VITALS: BP 159/85
[2022-02-09] MEDS: SODIUM CHLORIDE 0.45% 1,000 ML IV SCH (12:29)
[2022-02-09] MEDS: LOSARTAN POTASSIUM 25 MG TABLET PO SCH (12:33)
[2022-02-09 12:54] LABS: CLARITY URINE CLEAR (CLEAR); COLOR URINE YELLOW (YELLOW); KETONES URINE NEGATIVE (NEGATIVE); LEUKOCYTE ESTERASE URINE NEGATIVE (NEGATIVE); NITRITE URINE NEGATIVE (NEGATIVE); OCCULT BLOOD URINE NEGATIVE (NEGATIVE); PH URINE 5.5 (4.5-8.0); PROTEIN URINE 1+ (NEGATIVE); SPECIFIC GRAVITY URINE 1.025 (1.005-1.030)
[2022-02-09 16:00] VITALS: BP 132/71
[2022-02-09 20:00] VITALS: BP 108/60
[2022-02-09] MEDS ORDERED: DEXTROSE 50% WATER 50ML SYRINGE IV PRN (20:15)
[2022-02-09] MEDS: BLOOD SUGAR DIAGNOSTIC STRIP TEST SCH (20:31)
[2022-02-10] MEDS: VANCOMYCIN 1GM PMX (XELLIA) 200 ML IV SCH ×2 (03:17→15:55)
[2022-02-10] MEDS: SODIUM CHLORIDE 0.45% 1,000 ML IV SCH ×2 (03:18→13:40)
[2022-02-10] MEDS: PIPERACILLIN/TAZOBACTAM 3.375 G in DEXTROSE 5% WATER 50 ML IV SCH ×2 (06:04→13:39)
[2022-02-10] MEDS: INSULIN LISPRO 100 UNITS/ML SUBCUT SCH ×7 (06:40→21:00)
[2022-02-10 06:55] LABS: HEMATOCRIT. 25.7 % (42.0-52.0); HEMOGLOBIN. 8.7 g/dL (14.0-18.0); MEAN CORPUSCULAR HEMOGLOBIN 29.5 pg (28.0-32.0); MEAN CORPUSCULAR VOLUME 87.1 fL (80.0-94.0); MEAN PLATELET VOLUME 7.7 fl (7.4-10.4); PLATELET 393 x1000/uL (130-400); RED BLOOD CELL COUNT 2.95 mill/uL (4.7-6.1); RED CELL DISTRIBUTION WIDTH 16.2 % (11.6-14.6)
[2022-02-10] MEDS: BLOOD SUGAR DIAGNOSTIC STRIP TEST SCH ×4 (07:00→21:51)
[2022-02-10 07:14] LABS: CHLORIDE 96 mEq/L (98-107)
[2022-02-10 08:00] VITALS: BP 119/65
[2022-02-10] MEDS: LOSARTAN POTASSIUM 25 MG TABLET PO SCH (08:38)
[2022-02-10] MEDS: ENOXAPARIN 40MG/0.4ML SYR SUBCUT SCH (08:38)
[2022-02-10] MEDS: POTASSIUM CHLORIDE 20MEQ TABLET SR PO SCH (08:38)
[2022-02-10] MEDS: AMLODIPINE 10MG TABLET PO SCH (08:38)
[2022-02-10] MEDS: INSULIN GLARGINE 100 UNITS/ML SUBCUT SCH (10:18)
[2022-02-10 12:00] VITALS: BP 127/67
[2022-02-10] MEDS: ASCORBIC ACID 500 MG TABLET PO SCH (13:39)
[2022-02-10] MEDS: ZINC SULFATE 220 MG ( 50 ) CAPSULE PO SCH (13:39)
[2022-02-10 16:00] VITALS: BP 144/80
[2022-02-10 17:35] LABS: PLATELET ESTIMATE NORMAL
[2022-02-10 20:00] VITALS: BP 131/66
[2022-02-11] VITALS: BP 124/76
[2022-02-11] MEDS: PIPERACILLIN/TAZOBACTAM 3.375 G in DEXTROSE 5% WATER 50 ML IV SCH ×4 (02:27→22:08)
[2022-02-11] MEDS: VANCOMYCIN 1GM PMX (XELLIA) 200 ML IV SCH ×2 (03:55→17:23)
[2022-02-11 04:00] VITALS: BP 108/53
[2022-02-11] MEDS: SODIUM CHLORIDE 0.45% 1,000 ML IV SCH ×2 (04:01→17:23)
[2022-02-11] MEDS: BLOOD SUGAR DIAGNOSTIC STRIP TEST SCH ×4 (06:22→22:03)
[2022-02-11] MEDS: INSULIN LISPRO 100 UNITS/ML SUBCUT SCH ×7 (06:22→22:16)
[2022-02-11] MEDS: AMLODIPINE 10MG TABLET PO SCH (09:00)
[2022-02-11] MEDS: POTASSIUM CHLORIDE 20MEQ TABLET SR PO SCH (09:00)
[2022-02-11] MEDS: ENOXAPARIN 40MG/0.4ML SYR SUBCUT SCH (09:00)
[2022-02-11] MEDS: ZINC SULFATE 220 MG ( 50 ) CAPSULE PO SCH (09:00)
[2022-02-11] MEDS: LOSARTAN POTASSIUM 25 MG TABLET PO SCH (09:00)
[2022-02-11] MEDS: ASCORBIC ACID 500 MG TABLET PO SCH (09:00)
[2022-02-11] MEDS: INSULIN GLARGINE 100 UNITS/ML SUBCUT SCH (10:00)
[2022-02-11 12:00] VITALS: BP 126/52
[2022-02-11] MEDS ORDERED: ENOXAPARIN 40MG/0.4ML SYR SUBCUT SCH (14:15)
[2022-02-11] MEDS ORDERED: IOHEXOL-350 100 ML BOTTLE ONE (14:55)
[2022-02-11 16:00] VITALS: BP 125/60
[2022-02-11 20:00] VITALS: BP 131/64
[2022-02-11] MEDS: ENOXAPARIN 80MG/0.8ML SYR SUBCUT SCH (22:00)
[2022-02-12] VITALS: BP 136/73
[2022-02-12] MEDS: VANCOMYCIN 1GM PMX (XELLIA) 200 ML IV SCH ×2 (03:08→16:56)
[2022-02-12 04:00] VITALS: BP 120/62
[2022-02-12] MEDS: BLOOD SUGAR DIAGNOSTIC STRIP TEST SCH ×4 (06:02→21:00)
[2022-02-12] MEDS: INSULIN LISPRO 100 UNITS/ML SUBCUT SCH ×6 (06:12→22:14)
[2022-02-12] MEDS: SODIUM CHLORIDE 0.45% 1,000 ML IV SCH ×2 (06:45→20:05)
[2022-02-12 08:00] VITALS: BP 114/59
[2022-02-12] MEDS: AMLODIPINE 10MG TABLET PO SCH (09:00)
[2022-02-12] MEDS: ASCORBIC ACID 500 MG TABLET PO SCH (09:07)
[2022-02-12] MEDS: LOSARTAN POTASSIUM 25 MG TABLET PO SCH (09:07)
[2022-02-12] MEDS: POTASSIUM CHLORIDE 20MEQ TABLET SR PO SCH (09:07)
[2022-02-12] MEDS: ZINC SULFATE 220 MG ( 50 ) CAPSULE PO SCH (09:07)
[2022-02-12] MEDS: ENOXAPARIN 80MG/0.8ML SYR SUBCUT SCH ×2 (09:09→22:13)
[2022-02-12] MEDS: INSULIN GLARGINE 100 UNITS/ML SUBCUT SCH (10:00)
[2022-02-12 12:00] VITALS: BP 128/68
[2022-02-12 16:00] VITALS: BP 109/56
[2022-02-12 17:31] LABS: HEMATOCRIT. 23.8 % (42.0-52.0); HEMOGLOBIN. 7.8 g/dL (14.0-18.0); MEAN CORPUSCULAR HEMOGLOBIN 28.6 pg (28.0-32.0); MEAN CORPUSCULAR VOLUME 87.1 fL (80.0-94.0); MEAN PLATELET VOLUME 7.5 fl (7.4-10.4); PLATELET 425 x1000/uL (130-400); RED BLOOD CELL COUNT 2.73 mill/uL (4.7-6.1); RED CELL DISTRIBUTION WIDTH 16.6 % (11.6-14.6)
[2022-02-12 17:47] LABS: INR 1.2
[2022-02-12 17:58] LABS: PLATELET ESTIMATE INCREASED
[2022-02-12 19:49] LABS: CHLORIDE 99 mEq/L (98-107)
[2022-02-12 20:00] VITALS: BP 120/62
[2022-02-13 08:00] VITALS: BP 125/66
[2022-02-13] MEDS: ZINC SULFATE 220 MG ( 50 ) CAPSULE PO SCH (09:00)
[2022-02-13] MEDS: POTASSIUM CHLORIDE 20MEQ TABLET SR PO SCH (09:00)
[2022-02-13] MEDS: AMLODIPINE 10MG TABLET PO SCH (09:00)
[2022-02-13] MEDS: ASCORBIC ACID 500 MG TABLET PO SCH (09:00)
[2022-02-13] MEDS: LOSARTAN POTASSIUM 25 MG TABLET PO SCH (09:00)
[2022-02-13] MEDS: INSULIN LISPRO 100 UNITS/ML SUBCUT SCH ×5 (11:40→21:00)
[2022-02-13] MEDS: BLOOD SUGAR DIAGNOSTIC STRIP TEST SCH ×3 (11:40→21:00)
[2022-02-13] MEDS: INSULIN GLARGINE 100 UNITS/ML SUBCUT SCH (11:59)
[2022-02-13 12:00] VITALS: BP 102/53
[2022-02-13] MEDS ORDERED: LIDOCAINE HCL/PF 1% 10 MG/ML 5ML VIAL ONE (13:19)
[2022-02-13] MEDS ORDERED: IOHEXOL-350 100 ML BOTTLE ONE ×2 (14:26)
[2022-02-13] MEDS: VANCOMYCIN 1GM PMX (XELLIA) 200 ML IV SCH ×2 (15:00→18:29)
[2022-02-13 16:00] VITALS: BP 108/58
[2022-02-13] MEDS: SODIUM CHLORIDE 0.45% 1,000 ML IV SCH (22:45)
[2022-02-14] MEDS: VANCOMYCIN 1GM PMX (XELLIA) 200 ML IV SCH ×3 (03:00→17:03)
[2022-02-14] MEDS: BLOOD SUGAR DIAGNOSTIC STRIP TEST SCH ×4 (06:40→21:00)
[2022-02-14] MEDS: INSULIN LISPRO 100 UNITS/ML SUBCUT SCH ×9 (06:40→21:00)
[2022-02-14 08:00] VITALS: BP 128/62
[2022-02-14] MEDS: POTASSIUM CHLORIDE 20MEQ TABLET SR PO SCH ×2 (09:00→09:34)
[2022-02-14] MEDS: ZINC SULFATE 220 MG ( 50 ) CAPSULE PO SCH ×2 (09:00→09:34)
[2022-02-14] MEDS: AMLODIPINE 10MG TABLET PO SCH ×2 (09:00→09:34)
[2022-02-14] MEDS: ASCORBIC ACID 500 MG TABLET PO SCH ×2 (09:00→09:34)
[2022-02-14] MEDS: LOSARTAN POTASSIUM 25 MG TABLET PO SCH ×2 (09:00→09:34)
[2022-02-14] MEDS: INSULIN GLARGINE 100 UNITS/ML SUBCUT SCH ×2 (09:36→09:46)
[2022-02-14 11:23] LABS: HEMATOCRIT. 21.4 % (42.0-52.0); HEMOGLOBIN. 7.5 g/dL (14.0-18.0); MEAN CORPUSCULAR HEMOGLOBIN 30.3 pg (28.0-32.0); MEAN CORPUSCULAR VOLUME 86.4 fL (80.0-94.0); MEAN PLATELET VOLUME 7.3 fl (7.4-10.4); PLATELET 569 x1000/uL (130-400); RED BLOOD CELL COUNT 2.47 mill/uL (4.7-6.1); RED CELL DISTRIBUTION WIDTH 16.1 % (11.6-14.6)
[2022-02-14 11:31] LABS: CHLORIDE 101 mEq/L (98-107)
[2022-02-14 12:00] VITALS: BP 128/68
[2022-02-14] MEDS: SODIUM CHLORIDE 0.45% 1,000 ML IV SCH (12:05)
[2022-02-14 16:00] VITALS: BP 140/63
[2022-02-14 20:00] VITALS: BP 158/97
[2022-02-15] MEDS: SODIUM CHLORIDE 0.45% 1,000 ML IV SCH ×2 (01:36→15:22)
[2022-02-15] MEDS: VANCOMYCIN 1GM PMX (XELLIA) 200 ML IV SCH ×2 (03:00→15:21)
[2022-02-15 06:24] VITALS: BP 154/89
[2022-02-15] MEDS: BLOOD SUGAR DIAGNOSTIC STRIP TEST SCH ×4 (06:30→20:39)
[2022-02-15] MEDS: INSULIN LISPRO 100 UNITS/ML SUBCUT SCH ×7 (06:30→20:39)
[2022-02-15 08:00] VITALS: BP 141/77
[2022-02-15] MEDS: LOSARTAN POTASSIUM 25 MG TABLET PO SCH (08:39)
[2022-02-15] MEDS: ZINC SULFATE 220 MG ( 50 ) CAPSULE PO SCH (08:39)
[2022-02-15] MEDS: AMLODIPINE 10MG TABLET PO SCH (08:40)
[2022-02-15] MEDS: POTASSIUM CHLORIDE 20MEQ TABLET SR PO SCH (08:40)
[2022-02-15] MEDS: ASCORBIC ACID 500 MG TABLET PO SCH (08:40)
[2022-02-15] MEDS: INSULIN GLARGINE 100 UNITS/ML SUBCUT SCH (10:57)
[2022-02-15 12:00] VITALS: BP 115/69
[2022-02-15 16:00] VITALS: BP 136/76
[2022-02-15 16:13] LABS: BASOPHILS % 0.5 % (0.0-2.0); EOSINOPHILS % 0.4 % (0.0-5.0); HEMATOCRIT. 27.2 % (42.0-52.0); HEMOGLOBIN. 8.8 g/dL (14.0-18.0); LYMPHOCYTES % 7.8 % (20.0-50.0); MEAN CORPUSCULAR HEMOGLOBIN 28.9 pg (28.0-32.0); MEAN CORPUSCULAR VOLUME 89.7 fL (80.0-94.0); MEAN PLATELET VOLUME 7.3 fl (7.4-10.4); MONOCYTES % 5.2 % (2.0-8.0); NEUTROPHILS % 86.1 % (40.0-76.0); PLATELET 554 x1000/uL (130-400); RED BLOOD CELL COUNT 3.03 mill/uL (4.7-6.1); RED CELL DISTRIBUTION WIDTH 17.2 % (11.6-14.6)
[2022-02-15 16:32] LABS: CHLORIDE 98 mEq/L (98-107)
[2022-02-15 21:49] LABS: PLATELET ESTIMATE INCREASED
[2022-02-16] MEDS: VANCOMYCIN 1GM PMX (XELLIA) 200 ML IV SCH ×2 (02:52→15:57)
[2022-02-16] MEDS: SODIUM CHLORIDE 0.45% 1,000 ML IV SCH ×2 (02:53→19:31)
[2022-02-16] MEDS: INSULIN LISPRO 100 UNITS/ML SUBCUT SCH ×7 (06:04→21:00)
[2022-02-16] MEDS: BLOOD SUGAR DIAGNOSTIC STRIP TEST SCH ×4 (06:13→21:00)
[2022-02-16 08:00] VITALS: BP 133/67
[2022-02-16] MEDS: POTASSIUM CHLORIDE 20MEQ TABLET SR PO SCH (10:46)
[2022-02-16] MEDS: ASCORBIC ACID 500 MG TABLET PO SCH (10:46)
[2022-02-16] MEDS: ZINC SULFATE 220 MG ( 50 ) CAPSULE PO SCH (10:46)
[2022-02-16] MEDS: LOSARTAN POTASSIUM 25 MG TABLET PO SCH (10:47)
[2022-02-16] MEDS: AMLODIPINE 10MG TABLET PO SCH (10:47)
[2022-02-16] MEDS: INSULIN GLARGINE 100 UNITS/ML SUBCUT SCH (10:50)
[2022-02-16 12:00] VITALS: BP 135/70
[2022-02-16 16:00] VITALS: BP 132/68
[2022-02-16 20:00] VITALS: BP 117/61
[2022-02-17] VITALS: BP 131/79
[2022-02-17] MEDS: ACETAMINOPHEN 325MG TABLET PO PRN (00:54)
[2022-02-17] MEDS: VANCOMYCIN 1GM PMX (XELLIA) 200 ML IV SCH ×2 (02:17→14:49)
[2022-02-17 04:00] VITALS: BP 129/70
[2022-02-17] MEDS: BLOOD SUGAR DIAGNOSTIC STRIP TEST SCH ×4 (05:57→20:14)
[2022-02-17] MEDS: INSULIN LISPRO 100 UNITS/ML SUBCUT SCH ×7 (05:57→20:14)
[2022-02-17] MEDS: SODIUM CHLORIDE 0.45% 1,000 ML IV SCH ×2 (05:58→12:50)
[2022-02-17 08:00] VITALS: BP 139/73
[2022-02-17] MEDS: ASCORBIC ACID 500 MG TABLET PO SCH (08:49)
[2022-02-17] MEDS: AMLODIPINE 10MG TABLET PO SCH (08:52)
[2022-02-17] MEDS: POTASSIUM CHLORIDE 20MEQ TABLET SR PO SCH (08:52)
[2022-02-17] MEDS: LOSARTAN POTASSIUM 25 MG TABLET PO SCH (08:53)
[2022-02-17] MEDS: ZINC SULFATE 220 MG ( 50 ) CAPSULE PO SCH (08:53)
[2022-02-17] MEDS: INSULIN GLARGINE 100 UNITS/ML SUBCUT SCH (09:33)
[2022-02-17 10:31] LABS: HEMATOCRIT. 21.1 % (42.0-52.0); HEMOGLOBIN. 7.1 g/dL (14.0-18.0); MEAN PLATELET VOLUME 6.6 fl (7.4-10.4); PLATELET 483 x1000/uL (130-400); RED BLOOD CELL COUNT 2.45 mill/uL (4.7-6.1); RED CELL DISTRIBUTION WIDTH 16.5 % (11.6-14.6)
[2022-02-17 10:40] LABS: CHLORIDE 100 mEq/L (98-107)
[2022-02-17 12:00] VITALS: BP 117/63
[2022-02-17] MEDS ORDERED: NALOXONE HCL 0.4MG/ML VIAL IV PRN (15:00)
[2022-02-17 16:00] VITALS: BP 134/66
[2022-02-17] MEDS ORDERED: HYDROCODONE/APAP 7.5/325MG 1 TAB TABLET PO PRN ×2 (16:00)
[2022-02-18 04:00] VITALS: BP 150/51
[2022-02-18] MEDS: BLOOD SUGAR DIAGNOSTIC STRIP TEST SCH ×4 (05:47→20:19)
[2022-02-18] MEDS: INSULIN LISPRO 100 UNITS/ML SUBCUT SCH ×7 (06:14→22:09)
[2022-02-18 08:00] VITALS: BP 113/45
[2022-02-18] MEDS: AMLODIPINE 10MG TABLET PO SCH (08:57)
[2022-02-18] MEDS: ASCORBIC ACID 500 MG TABLET PO SCH (08:57)
[2022-02-18] MEDS: POTASSIUM CHLORIDE 20MEQ TABLET SR PO SCH (08:57)
[2022-02-18] MEDS: ZINC SULFATE 220 MG ( 50 ) CAPSULE PO SCH (08:57)
[2022-02-18] MEDS: LOSARTAN POTASSIUM 25 MG TABLET PO SCH (08:57)
[2022-02-18] MEDS: SODIUM CHLORIDE 0.45% 1,000 ML IV SCH ×2 (08:58→22:05)
[2022-02-18] MEDS: INSULIN GLARGINE 100 UNITS/ML SUBCUT SCH (10:54)
[2022-02-18 16:00] VITALS: BP 125/65
[2022-02-18 20:00] VITALS: BP 127/64
[2022-02-19 01:08] LABS: PLATELET ESTIMATE INCREASED
[2022-02-19 04:00] VITALS: BP 149/74
[2022-02-19] MEDS: BLOOD SUGAR DIAGNOSTIC STRIP TEST SCH ×4 (05:40→20:52)
[2022-02-19] MEDS: INSULIN LISPRO 100 UNITS/ML SUBCUT SCH ×7 (05:40→21:07)
[2022-02-19 08:00] VITALS: BP 134/70
[2022-02-19] MEDS ORDERED: IODIXANOL 320MG/ML 100 ML BOTTLE IV ONE (08:04)
[2022-02-19] MEDS: ASCORBIC ACID 500 MG TABLET PO SCH (09:00)
[2022-02-19] MEDS: LOSARTAN POTASSIUM 25 MG TABLET PO SCH (09:00)
[2022-02-19] MEDS: POTASSIUM CHLORIDE 20MEQ TABLET SR PO SCH (09:00)
[2022-02-19] MEDS: AMLODIPINE 10MG TABLET PO SCH (09:00)
[2022-02-19] MEDS: ZINC SULFATE 220 MG ( 50 ) CAPSULE PO SCH (09:00)
[2022-02-19] MEDS: INSULIN GLARGINE 100 UNITS/ML SUBCUT SCH (10:00)
[2022-02-19] MEDS ORDERED: MIDAZOLAM HCL 2 MG/2 ML VIAL ONE (10:23)
[2022-02-19] MEDS ORDERED: HEPARIN 1000 UNITS/ML 10ML ONE (10:23)
[2022-02-19] MEDS ORDERED: FENTANYL CITRATE/PF 50MCG/ML 2ML VIAL ONE ×2 (10:23→10:57)
[2022-02-19] MEDS ORDERED: LIDOCAINE HCL 1% 50ML VIAL (10MG/ML) ONE (10:24)
[2022-02-19] MEDS: SODIUM CHLORIDE 0.45% 1,000 ML IV SCH ×2 (12:05→21:08)
[2022-02-19 16:00] VITALS: BP 125/56
[2022-02-19 17:00] LABS: HEMATOCRIT. 21.7 % (42.0-52.0); HEMOGLOBIN. 7.4 g/dL (14.0-18.0); MEAN CORPUSCULAR VOLUME 85.8 fL (80.0-94.0); MEAN PLATELET VOLUME 6.3 fl (7.4-10.4); PLATELET 443 x1000/uL (130-400); RED BLOOD CELL COUNT 2.53 mill/uL (4.7-6.1); RED CELL DISTRIBUTION WIDTH 17.2 % (11.6-14.6)
[2022-02-19 17:06] LABS: CHLORIDE 96 mEq/L (98-107)
[2022-02-19 18:34] LABS: PLATELET ESTIMATE SLIGHTLY INCREASED
[2022-02-19 20:00] VITALS: BP 103/44
[2022-02-20] VITALS: BP 123/66
[2022-02-20] MEDS: INSULIN LISPRO 100 UNITS/ML SUBCUT SCH ×5 (06:12→22:32)
[2022-02-20] MEDS: BLOOD SUGAR DIAGNOSTIC STRIP TEST SCH ×4 (06:12→21:50)
[2022-02-20 08:00] VITALS: BP 120/52
[2022-02-20 12:00] VITALS: BP 123/63
[2022-02-20] MEDS ORDERED: PROPOFOL 200MG/20ML VIAL IV ONE ×2 (13:59→14:13)
[2022-02-20] MEDS ORDERED: FENTANYL CITRATE/PF 50MCG/ML 2ML VIAL ONE ×2 (14:00→14:14)
[2022-02-20] MEDS ORDERED: MIDAZOLAM HCL 2 MG/2 ML VIAL ONE ×3 (14:00→15:08)
[2022-02-20] MEDS ORDERED: VANCOMYCIN HCL 1 GM/VIAL ONE (14:07)
[2022-02-20] MEDS ORDERED: POLYMYXIN B SULFATE 500000 UNITS/VIAL ONE (14:07)
[2022-02-20] MEDS ORDERED: LIDOCAINE HCL 1% 50ML VIAL (10MG/ML) ONE (14:08)
[2022-02-20] MEDS ORDERED: BUPIVACAINE HCL 0.5% (5MG/ML) 50ML ONE (14:08)
[2022-02-20] MEDS: SODIUM CHLORIDE 0.45% 1,000 ML IV SCH ×2 (14:45→22:33)
[2022-02-20] MEDS ORDERED: ETOMIDATE 2MG/ML 10ML VIAL IV ONE (15:38)
[2022-02-20] MEDS ORDERED: DEXAMETHASONE 4MG/ML 1ML VIAL ONE (15:38)
[2022-02-20] MEDS ORDERED: CEFAZOLIN SODIUM 1000MG/VIAL ONE (15:38)
[2022-02-20] MEDS ORDERED: ONDANSETRON HCL 4MG/2ML INJ ONE (15:38)
[2022-02-20 15:48] VITALS: BP 143/50
[2022-02-20] MEDS: CEFAZOLIN 1000MG PREMIX 50 ML IV SCH ×2 (16:00→22:33)
[2022-02-20 16:02] VITALS: BP 124/64
[2022-02-20] MEDS ORDERED: FENTANYL CITRATE/PF 50MCG/ML 2ML VIAL IV PRN (17:30)
[2022-02-20 18:50] LABS: HEMATOCRIT 23.3 % (42.0-52.0); HEMOGLOBIN 7.6 g/dL (14.0-18.0)
[2022-02-20 20:00] VITALS: BP 109/64
[2022-02-20] MEDS ORDERED: CEFAZOLIN SODIUM 1000MG/VIAL IV SCH (22:00)
[2022-02-21] MEDS: SODIUM CHLORIDE 0.45% 1,000 ML IV SCH ×2 (03:10→16:26)
[2022-02-21] MEDS: CEFAZOLIN 1000MG PREMIX 50 ML IV SCH ×4 (03:10→21:59)
[2022-02-21 04:00] VITALS: BP 113/71
[2022-02-21] MEDS: BLOOD SUGAR DIAGNOSTIC STRIP TEST SCH ×4 (06:07→21:00)
[2022-02-21] MEDS: INSULIN LISPRO 100 UNITS/ML SUBCUT SCH ×6 (06:40→22:00)
[2022-02-21 08:00] VITALS: BP 108/64
[2022-02-21] MEDS: AMLODIPINE 10MG TABLET PO SCH (08:39)
[2022-02-21] MEDS: ASCORBIC ACID 500 MG TABLET PO SCH (08:39)
[2022-02-21] MEDS: ZINC SULFATE 220 MG ( 50 ) CAPSULE PO SCH (08:39)
[2022-02-21] MEDS: LOSARTAN POTASSIUM 25 MG TABLET PO SCH (08:39)
[2022-02-21] MEDS: POTASSIUM CHLORIDE 20MEQ TABLET SR PO SCH (08:39)
[2022-02-21] MEDS: INSULIN GLARGINE 100 UNITS/ML SUBCUT SCH ×2 (11:22→11:35)
[2022-02-21 12:00] VITALS: BP 109/55
[2022-02-21 16:00] VITALS: BP 104/55
[2022-02-21 20:00] VITALS: BP 127/66
[2022-02-22] VITALS: BP 125/60
[2022-02-22 04:00] VITALS: BP 143/86
[2022-02-22] MEDS: CEFAZOLIN 1000MG PREMIX 50 ML IV SCH ×2 (05:42→13:18)
[2022-02-22] MEDS: SODIUM CHLORIDE 0.45% 1,000 ML IV SCH (05:42)
[2022-02-22] MEDS: BLOOD SUGAR DIAGNOSTIC STRIP TEST SCH ×4 (06:03→21:00)
[2022-02-22] MEDS: INSULIN LISPRO 100 UNITS/ML SUBCUT SCH ×7 (06:17→21:00)
[2022-02-22 08:00] VITALS: BP 134/91
[2022-02-22] MEDS: ZINC SULFATE 220 MG ( 50 ) CAPSULE PO SCH (11:00)
[2022-02-22] MEDS: LOSARTAN POTASSIUM 25 MG TABLET PO SCH (11:00)
[2022-02-22] MEDS: AMLODIPINE 10MG TABLET PO SCH (11:00)
[2022-02-22] MEDS: ASCORBIC ACID 500 MG TABLET PO SCH (11:00)
[2022-02-22] MEDS: POTASSIUM CHLORIDE 20MEQ TABLET SR PO SCH (11:00)
[2022-02-22] MEDS: INSULIN GLARGINE 100 UNITS/ML SUBCUT SCH (11:01)
[2022-02-22 12:00] VITALS: BP 149/85
[2022-02-22 16:00] VITALS: BP 109/55
[2022-02-22 20:00] VITALS: BP 138/70
[2022-02-23] VITALS: BP 138/70
[2022-02-23 04:00] VITALS: BP 146/78
[2022-02-23] MEDS: INSULIN LISPRO 100 UNITS/ML SUBCUT SCH ×7 (06:48→20:42)
[2022-02-23] MEDS: BLOOD SUGAR DIAGNOSTIC STRIP TEST SCH ×4 (06:49→20:42)
[2022-02-23 08:00] VITALS: BP 149/82
[2022-02-23] MEDS: LOSARTAN POTASSIUM 25 MG TABLET PO SCH (09:56)
[2022-02-23] MEDS: ZINC SULFATE 220 MG ( 50 ) CAPSULE PO SCH (09:56)
[2022-02-23] MEDS: ASCORBIC ACID 500 MG TABLET PO SCH (09:56)
[2022-02-23] MEDS: AMLODIPINE 10MG TABLET PO SCH (09:56)
[2022-02-23] MEDS: POTASSIUM CHLORIDE 20MEQ TABLET SR PO SCH (09:56)
[2022-02-23] MEDS: INSULIN GLARGINE 100 UNITS/ML SUBCUT SCH (09:58)
[2022-02-23 12:00] VITALS: BP 143/84
[2022-02-23 16:00] VITALS: BP 141/79
[2022-02-23 20:00] VITALS: BP 109/60
[2022-02-24] VITALS: BP 129/65
[2022-02-24 04:00] VITALS: BP 144/82
[2022-02-24] MEDS: BLOOD SUGAR DIAGNOSTIC STRIP TEST SCH ×4 (06:18→20:04)
[2022-02-24] MEDS: INSULIN LISPRO 100 UNITS/ML SUBCUT SCH ×7 (06:18→20:19)
[2022-02-24 08:00] VITALS: BP 107/59
[2022-02-24] MEDS: ZINC SULFATE 220 MG ( 50 ) CAPSULE PO SCH (08:53)
[2022-02-24] MEDS: ASCORBIC ACID 500 MG TABLET PO SCH (08:53)
[2022-02-24] MEDS: POTASSIUM CHLORIDE 20MEQ TABLET SR PO SCH (08:53)
[2022-02-24] MEDS: LOSARTAN POTASSIUM 25 MG TABLET PO SCH (08:54)
[2022-02-24] MEDS: AMLODIPINE 10MG TABLET PO SCH (08:54)
[2022-02-24] MEDS: INSULIN GLARGINE 100 UNITS/ML SUBCUT SCH (09:51)
[2022-02-24 12:00] VITALS: BP 131/70
[2022-02-24 16:00] VITALS: BP 140/76
[2022-02-24 20:00] VITALS: BP 130/86
[2022-02-25 04:00] VITALS: BP 139/76
[2022-02-25] MEDS: BLOOD SUGAR DIAGNOSTIC STRIP TEST SCH ×4 (06:25→21:00)
[2022-02-25] MEDS: INSULIN LISPRO 100 UNITS/ML SUBCUT SCH ×7 (06:34→21:00)
[2022-02-25 08:00] VITALS: BP 119/70
[2022-02-25] MEDS: POTASSIUM CHLORIDE 20MEQ TABLET SR PO SCH (08:49)
[2022-02-25] MEDS: ZINC SULFATE 220 MG ( 50 ) CAPSULE PO SCH (08:49)
[2022-02-25] MEDS: AMLODIPINE 10MG TABLET PO SCH (08:49)
[2022-02-25] MEDS: LOSARTAN POTASSIUM 25 MG TABLET PO SCH (08:49)
[2022-02-25] MEDS: ASCORBIC ACID 500 MG TABLET PO SCH (08:49)
[2022-02-25] MEDS: INSULIN GLARGINE 100 UNITS/ML SUBCUT SCH (10:07)
[2022-02-25 12:00] VITALS: BP 118/67
[2022-02-25 16:00] VITALS: BP 125/46
[2022-02-25 20:00] VITALS: BP 98/53
[2022-02-26] VITALS: BP 128/75
[2022-02-26 04:00] VITALS: BP 138/79
[2022-02-26 08:00] VITALS: BP 145/79
[2022-02-26] MEDS: BLOOD SUGAR DIAGNOSTIC STRIP TEST SCH ×3 (08:09→17:20)
[2022-02-26] MEDS: INSULIN LISPRO 100 UNITS/ML SUBCUT SCH ×4 (08:35→21:00)
[2022-02-26] MEDS: INSULIN GLARGINE 100 UNITS/ML SUBCUT SCH (10:00)
[2022-02-26] MEDS: ZINC SULFATE 220 MG ( 50 ) CAPSULE PO SCH (10:07)
[2022-02-26] MEDS: POTASSIUM CHLORIDE 20MEQ TABLET SR PO SCH (10:07)
[2022-02-26] MEDS: AMLODIPINE 10MG TABLET PO SCH (10:07)
[2022-02-26] MEDS: LOSARTAN POTASSIUM 25 MG TABLET PO SCH (10:07)
[2022-02-26] MEDS: ASCORBIC ACID 500 MG TABLET PO SCH (10:08)
[2022-02-26 12:00] VITALS: BP 145/79
[2022-02-26 18:35] VITALS: BP 140/80
[2022-02-27] MEDS: INSULIN LISPRO 100 UNITS/ML SUBCUT SCH (07:50)
[2022-02-27] MEDS: ASCORBIC ACID 500 MG TABLET PO SCH (08:33)
[2022-02-27] MEDS: AMLODIPINE 10MG TABLET PO SCH (08:33)
[2022-02-27] MEDS: ZINC SULFATE 220 MG ( 50 ) CAPSULE PO SCH (08:33)
[2022-02-27] MEDS: LOSARTAN POTASSIUM 25 MG TABLET PO SCH (08:33)
[2022-02-27] MEDS: POTASSIUM CHLORIDE 20MEQ TABLET SR PO SCH (08:33)
== END 2022-02-27 15:25 | DRG 710 ==
LOC: ER 21:17 → 7EST 02-07 02:27 → ENRESERV 02-07 07:51 → 6EST 02-25 11:09
PROVIDERS: ADMIT Hospitalist; ATTEND Hospitalist
PROC: 02HV33Z Insertion of Infusion Device into Superior Vena Cava, Percutaneous Approach (ICD-10-PCS; 2022-02-13)
PROC: B548ZZA Ultrasonography of Superior Vena Cava, Guidance (ICD-10-PCS; 2022-02-13)
PROC: 047Q3ZZ Dilation of Left Anterior Tibial Artery, Percutaneous Approach (ICD-10-PCS; 2022-02-19)
PROC: B41G1ZZ Fluoroscopy of Left Lower Extremity Arteries using Low Osmolar Contrast (ICD-10-PCS; 2022-02-19)
PROC: 0Y6J0Z1 Detachment at Left Lower Leg, High, Open Approach (ICD-10-PCS; principal; 2022-02-20)
PROC: 30233N1 Transfusion of Nonautologous Red Blood Cells into Peripheral Vein, Percutaneous Approach (ICD-10-PCS; 2022-02-20)
DX: A41.89 Other specified sepsis (principal); E43 Unspecified severe protein-calorie malnutrition; A48.0 Gas gangrene; E11.52 Type 2 diabetes mellitus with diabetic peripheral angiopathy with gangrene; E11.621 Type 2 diabetes mellitus with foot ulcer; D64.9 Anemia, unspecified; E11.65 Type 2 diabetes mellitus with hyperglycemia; L02.612 Cutaneous abscess of left foot; E87.1 Hypo-osmolality and hyponatremia; L97.529 Non-pressure chronic ulcer of other part of left foot with unspecified severity; E88.09 Other disorders of plasma-protein metabolism, not elsewhere classified; R74.01 Elevation of levels of liver transaminase levels; J44.9 Chronic obstructive pulmonary disease, unspecified; Z20.822 Contact with and (suspected) exposure to COVID-19; E87.6 Hypokalemia; F20.9 Schizophrenia, unspecified; Z79.899 Other long term (current) drug therapy; Z74.01 Bed confinement status; Z68.1 Body mass index [BMI] 19.9 or less, adult; Z89.511 Acquired absence of right leg below knee; Z82.49 Family history of ischemic heart disease and other diseases of the circulatory system; M86.9 Osteomyelitis, unspecified; Z79.84 Long term (current) use of oral hypoglycemic drugs
CPT/HCPCS: 36415; 36573; 37228; 71045; 73610; 73630; 75635; 75710; 80048; 80053; 80061; 80202; 80320; 81003; 82010; 82140; 82962; 83036; 83735; 84145; 84443; 84484; 85014; 85018; 85025; 85347; 86850; 86900; 86920; 87426; 88307; 88311; 93005; 93922; 97162; 97535; 99291; A6261; C1725; C1760; C1769; C1887; C1893; C1894; J0690; J1100; J1644; J1650; J1815; J2250; J2405; J2543; J2704; J3010; J3370; J3480; J3490; J7060; P9016; Q9967; G0480